=== PATIENT | male | born 2005 | race Caucasian/White ===

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

== ENCOUNTER → 2024-01-24 16:02 | Outpatient (BNVA) | payer MEDICAID, SELFPAY | PROVIDERS: PCP Family Medicine; Visit Provider Family Medicine | DX: D23.9 Other benign neoplasm of skin, unspecified (principal) | CPT/HCPCS: 88305 ==

== ENCOUNTER 2024-05-30 19:11 | Emergency (ER) | payer MEDICAID, SELFPAY ==
[2024-05-30 19:12] VITALS: BP 145/83; PULSE 67; RESP 18; TEMP 36.8; BMI 27.1
--- NOTE | 2024-05-30 19:48 | ED_ITS ---
HPI - Dental/Oral 2 General: Chief complaint: Dental/Oral Stated complaint: dental pain , broke tooth Time Seen by Provider: 05/30/24 19:47 History of Present Illness: Presents with dental pain. Patient has general decay throughout but fractured tooth in upper left posterior; stomatitis present. Associated symptoms: Denies fever(s) Related Data Previous Rx's Medication Instructions Recorded ibuprofen 800 mg tablet 800 mg PO Q8H PRN pain #21 tabs 01/12/23 fluoxetine 60 mg tablet 60 mg PO QAM #90 tabs 12/26/23 lisdexamfetamine 50 mg capsule 50 mg PO QAM 30 days #30 caps 05/12/24 chlorhexidine gluconate 0.12 % 15 ml buccal BID #1,500 mL 05/30/24 mouthwash (Peridex) ketorolac 10 mg tablet 10 mg PO Q8H PRN pain 5 days #20 05/30/24 tabs penicillin V potassium 500 mg 500 mg PO Q6H 10 days #40 tabs 05/30/24 tablet Allergies Allergy/AdvReac Type Severity Reaction Status Date / Time lithium Allergy ALGY-Rash Verified 05/18/24 11:11 Review of Systems 2 Const: Denies: fever(s), chills, body aches, change in weight or fatigue ENMT: Reports: other (dental fracture and decay) PFSH ED 2 PFSH: Medical History Psychiatric care Self-excoriation disorder Dissociative identity disorder Schizoaffective disorder, depressive type Anxiety Depression Autism ADHD Intermittent explosive disorder Family History Grandfather Cancer Maternal-pancreatic Other Bleeding disorder CAD (coronary artery disease) Chronic kidney disease (CKD) Diabetes Hyperlipidemia Hypertension Lung disease Psychiatric illness Stroke Denies family history of Clotting disorder Dementia Anesthesia complication Social History Smoking and tobacco/nicotine status: never used tobacco/nicotine Alcohol intake: never Substance/Drug Use: former Date of last use: 3 weeks ago. MJ, pills. NO IVDU Lives independently: Yes Marital status: Single Current occupational status: unemployed Special sachin needs: No Agree to transfusion: Yes Physical Exam 2 Const: COMMON NORMALS: no acute distress, patient oriented x3 and alert G ENERAL APPEARANCE: cooperative ORIENTATION/CONSCIOUSNESS: Yes awake, Yes oriented to person, Yes oriented to place and Yes oriented to time HENMT: COMMON NORMALS: normocephalic and atraumatic HEAD & SCALP: n ormocephalic and atraumatic FACE & SINUS: normal facial exam MOUTH: Normal oral and palatal mucosa present TEETH & GINGIVA IMAGES: 1. Decay, dental fracture, 2. Stomatitis THROAT: posterior oropharynx normal Eye: COMMON NORMALS: Equal, round and reactive pupils present, EOMs intact bilaterally, conjunctivae normal and no scleral icterus GENERAL EYE: a ppearance normal, both eyes and all related structures ALIGNMENT: Yes alignment normal PERIORBITAL: periorbital findings normal CONJUNCTIVA: Yes conjunctivae normal PUPIL: Yes Equal, round and reactive pupils present Chest: COMMONS NORMALS: normal inspection of the chest Breast/axilla inspection: Yes no chest deformity, asymmetry, normal contours, no nodules, masses, tenderness Resp: COMMON NORMALS: normal respiratory effort, No retractions and No use of accessory muscles EFFORT & INSPECTION: Yes able to speak in complete sentences and Yes symmetric chest movement Cardio: COMMON NORMALS: regular rate RATE: regular rate GI: COMMON NORMALS: Soft to palpation and non-tender INSPECTION: Yes normal to inspection PALPATION: Yes Soft to palpation RECTAL EXAM: Yes deferred Neuro: COMMON NORMALS: patient oriented x3 SENSORIUM/ORIENTATION: Yes alert, Yes oriented to person, Yes oriented to place and Yes oriented to time CRANIAL NERVES: Yes CN normal except as noted Course 2 Vital Signs: Vital signs: Vital Signs Temperature 98.2 F 05/30/24 19:12 Pulse Rate 67 05/30/24 19:12 Respiratory Rate 18 05/30/24 19:12 Blood Pressure 145/83 05/30/24 19:12 Oxygen Delivery Me thod Room Air 05/30/24 19:12 MDM - Dental/Oral Medical Decision Making Presents with dental pain, dental abscess, fractured tooth. Patient reports that the tooth has been fractured for greater than a year. Pain worsened recently No radiology studies performed this visit Discharge Plan Discharge Patient Disposition: Home Clinical Impression: Toothache, Dental caries, Dental abscess Condition: Stable Prescriptions: New penicillin V potassium 500 mg tablet 500 mg PO Q6H 10 Days Qty: 40 0RF chlorhexidine gluconate [Peridex] 0.12 % mouthwash 15 ml buccal BID Qty: 1500 0RF ketorolac 10 mg tablet 10 mg PO Q8H PRN (Reason: pain) 5 Days Qty: 20 0RF No Action lisdexamfetamine 50 mg capsule 50 mg PO QAM 30 Days Qty: 30 0RF fluoxetine 60 mg tablet 60 mg PO QAM Qty: 90 1RF ibuprofen 800 mg tablet 800 mg PO Q8H PRN (Reason: pain) Qty: 21 0RF Discharge Orders: Discharge ED (Routine); Ordered 05/30/24 Ordered By: Abdifatah Rollins Referrals: Dewayne Yun MD [Primary Care Provider] - Discharge Diet: Advance as tolerated Discharge Activity: Resume usual activity Patient Instructions: Pain Management, Dental Abscess, Dental Caries (Cavities) Coding Level of Care Code ED Wildlife Biology Technician for Margarita Colvin
[2024-05-30] MEDS: ketorolac 30 mg/mL INJ IM (20:27)
== END 2024-05-30 21:09 | disposition home or self-care (01) ==
PROVIDERS: Emergency Provider Nurse Practitioner; PCP Family Medicine
DX: K08.89 Other specified disorders of teeth and supporting structures (principal); K02.9 Dental caries, unspecified; K04.7 Periapical abscess without sinus
CPT/HCPCS: 96372; 99284; J1885

== ENCOUNTER 2025-03-16 21:56 | Emergency (ER) | payer MEDICAID, SELFPAY ==
[2025-03-16 22:03] VITALS: BP 171/92; PULSE 100; RESP 18; TEMP 37; O2SAT 99; BMI 34.4
--- NOTE | 2025-03-16 22:56 | ED_ITS ---
HPI - Skin/Abscess/Foreign Bdy 2 General: Chief complaint: Skin/Abscess/Foreign Body Stated complaint: Bump Popped by Tail bone Time Seen by Provider: 03/16/25 21:58 History of Present Illness: Patient is 19-year-old boy without medical history that presents to the emergency room with 3 days of worsening redness and protuberance at superior buttocks fold vertically. He has not had any fever, or chills. He states this was a bulge yesterday, and has progressively gotten worse today. No history of previous abscesses. He does have a great deal of hair to his buttocks. Mild nausea. Associated symptoms: Reports nausea; Deny chills, fever(s) or vomiting Related Data Previous Rx's ?Medication ?Instructions ?Recorded ibuprofen 800 mg tablet 800 mg PO Q8H PRN pain #21 t abs 01/12/23 bupropion HCl 300 mg 24 hr tablet, 300 mg PO QAM #30 t abs 01/08/25 extended release (Wellbutrin XL) clonidine HCl 0.1 mg tablet 0.1 mg PO DAILY #30 tabs 0 01/08/25 fluoxetine 60 mg tablet 60 mg PO QAM #30 tabs haloperidol 5 mg tablet 5 mg PO BID #60 tabs 5 doxycycline hyclate 100 mg capsule 100 mg PO BID 10 da ys #20 caps 03/16/25 Allergies Allergy/AdvReac Type Severity Reaction Status Date / Time lithium Allergy ALGY-Rash Verified 03/16/25 22:09 Review of Systems 2 Const: Denies: fever(s) or chills Card: Denies: chest pain or palpitations Resp: Denies: dyspnea or non-productive cough GI: Reports: nausea; Denies: abdominal pain or vomiting : Denies: flank pain or difficulty urinating Musc: Reports: back pain (low); Denies: neck pain Skin/Breast: Reports: erythema, skin tenderness and sores; Denies: rash or pruritus Neuro: Denies: headache(s) or numbness in extremities Psych: Denies: anxiety or depression PFS ED 2 PFSH: Medical History (Updated 03/16/25 @ 23:02 by KELLIE Jaramillo) Obesity (BMI 30.0-34.9) Psychiatric care Self-excoriation disorder Dissociative identity disorder Schizoaffective disorder, depressive type Anxiety Depression Autism ADHD Intermittent explosive disorder Family History Grandfather Cancer Maternal-pancreatic Other Bleeding disorder CAD (coronary artery disease) Chronic kidney disease (CKD) Diabetes Hyperlipidemia Hypertension Lung disease Psychiatric illness Stroke Denies family history of Clotting disorder Dementia Anesthesia complication Social History Smoking and tobacco/nicotine status: current every day tobacco/nicotine user e- cigarettes E-Cigarette Details: vaporizer device Alcohol intake: never Substance/Drug Use: former Date of last use: 3 weeks ago. MJ, pills. NO IVDU Lives independently: Yes Marital status: Single Current occupational status: unemployed Special sachin needs: No Agree to transfusion: Yes Physical Exam 2 Const: COMMON NORMALS: no acute distress, average body habitus, patient oriented x3, no limitations, healthy appearing, alert and well nourished HENMT: COMMON NORMALS: normocephalic and atraumatic HEAD & SCALP: n ormocephalic and atraumatic Chest: COMMONS NORMALS: normal inspection of the chest and normal palpation of entire chest wall Resp: COMMON NORMALS: normal respiratory effort, No retractions and No use of accessory muscles Cardio: COMMON NORMALS: regular rate and regular rhythm RATE: regular rate RHYTHM: regular rhythm GI: COMMON NORMALS: Normal to inspection, nondistended, normoactive bowel sounds present, Soft to palpation, non-tender and No hepatosplenomegaly present PALPATION: Yes Soft to palpation and Yes No hepatosplenomegaly present : COMMON NORMALS: Yes no CVA tenderness BLADDER/KIDNEY EXAM: Yes no CVA tenderness Back/Pelvis: COMMON NORMALS: no CVA tenderness BACK IMAGE (MALE): 1. 4 cm indurated with surrounding redness Neuro: COMMON NORMALS: patient oriented x3 SENSORIUM/ORIENTATION: Yes alert Procedures Abscess I/D Site: sumanth-rectal Local Anesthetic: lidocaine 1% and with epi Amount of anesthesia used (mL): 8 Technique: incised with #11 blade Amount of fluid expressed (mL): 100 Irrigation: Yes (Vigorous with 80 mL / 810 cc syringes) Packing used?: plain Complications: pain and bleeding Course 2 Vital Signs: Vital signs: Vital Signs Temperature 98.6 F 03/16/25 22:03 Pulse Rate 100 10/21/25 22:03 Respiratory Rate 18 03/16/25 22:03 Blood Pressure 171/92 03/16/25 22:03 Pulse Oximetry 99 03/16/25 22:03 Oxygen Delivery Me thod Room Air 03/16/25 22:03 MDM - Skin/Abscess/Foreign Bdy Medicial Decision Making Patient is a 19-year-old male without previous rectal/pilonidal abscess presented with 3 days of worsening redness, and fullness to his superior buttocks fold. A great deal abscess was drained in this area, and then packed with approximately 10 inches of plain packing. Referral to the wound care was made as well. All of patient's questions were answered to his satisfaction. Will give [place] x 1 here due to the procedure, then patient will utilize Tylenol, and ibuprofen. Medical Records I reviewed the patient's medical records. No radiology studies performed this visit Discharge Plan Discharge Patient Disposition: Home Clinical Impression: Abscess of skin or subcutaneous tissue Qualifiers: Site of cutaneous abscess: buttock Qualified Code(s): L02.31 - Cutaneous abscess of buttock Condition: Stable Prescriptions: New doxycycline hyclate 100 mg capsule 100 mg PO BID 10 Days Qty: 20 0RF No Action fluoxetine 60 mg tablet 60 mg PO QAM Qty: 30 2RF clonidine HCl 0.1 mg tablet 0.1 mg PO DAILY Qty: 30 2RF bupropion HCl [Wellbutrin XL] 300 mg tablet extended release 24 hr 300 mg PO QAM Qty: 30 2RF haloperidol 5 mg tablet 5 mg PO BID Qty: 60 2RF ibuprofen 800 mg tablet 800 mg PO Q8H PRN (Reason: pain) Qty: 21 0RF Discharge Orders: Discharge ED (Routine); Ordered 03/16/25 Ordered By: Rylie Garza Referrals: Dewayne Yun MD [Primary Care Provider, Family Practice] Discharge Diet: Usual diet Discharge Activity: Resume usual activity Patient Instructions: Rectal Abscess (ED), Patient Portal & Tess Instructions Activity Restrictions/Additional Instructions: - Take antibiotics as prescribed. Utilize a probiotic or active culture yogurt to avoid infectious diarrhea -Follow-up with your doctor. You need a referral to a surgeon to remove this area -Wound care should get a hold of you regarding your referral, if not, call them in the morning for repacking. -Wash this area daily - Return to ED with 101.4 ?F temperature or higher, increasing redness, increasing pain -Ice can help with pain. Tylenol, and ibuprofen taken together can help with pain Print Language: Eritrean Coding Level of Care Code ED Waste Management Recycling Technician for Margarita Colvin
[2025-03-16] MEDS: cefTRIAXone 1,000 MG in water for injection-sterile 2.1 ML 1 MG IM (23:06)
[2025-03-16] MEDS: lidocaine-epi 1% 20 mL INJ INJECTION (23:06)
[2025-03-16] MEDS: HYDROcodone-acetaminophen 10-325 mg Tablet 1 TAB PO (23:07)
[2025-03-16] MEDS: ondansetron hcl ODT 4 mg Tab PO (23:07)
== END 2025-03-17 00:14 | disposition home or self-care (01) ==
PROVIDERS: Emergency Provider Physician Assistant; PCP Family Medicine
DX: L02.31 Cutaneous abscess of buttock (principal); F17.290 Nicotine dependence, other tobacco product, uncomplicated
CPT/HCPCS: 10060; 87070; 87075; 87205; 96372; 99284; J0696; J9999; Q0162

== ENCOUNTER → 2025-03-30 10:26 | Outpatient (BNVA) | payer MEDICAID, SELFPAY | PROVIDERS: PCP Family Medicine; Visit Provider Thoracic Surgery (Cardiothoracic Vascular Surgery) | DX: I96 Gangrene, not elsewhere classified (principal); L98.411 Non-pressure chronic ulcer of buttock limited to breakdown of skin ==